=== PATIENT | male | born 1985 | race American Indian/Alaskan Native ===

== ENCOUNTER 2018-10-11 19:09 | Emergency (ER) | payer SELFPAY ==
--- NOTE | 2018-10-11 19:34 | Event Note ---
ED Screening Note Date of service: 10/11/18 Time: 19:33 ED Screening Note: 33 y o male presents with harris x 2 days no hx of headache This initial assessment/diagnostic orders/clinical plan/treatment(s) is/are subject to change based on patients health status, clinical progression and re-assessment by fellow clinical providers in the ED. Further treatment and workup at subsequent clinical providers discretion. Patient/guardian urged not to elope from the ED as their condition may be serious if not clinically assessed and managed. Initial orders include:
[2018-10-11] MEDS ORDERED: DECADRON ONE (23:39)
[2018-10-11] MEDS ORDERED: REGLAN ONE (23:40)
[2018-10-11] MEDS ORDERED: BENADRYL PO ONE (23:40)
[2018-10-11] MEDS ORDERED: ULTRAM ONE (23:40)
[2018-10-11] MEDS ORDERED: TYLENOL ONE (23:42)
[2018-10-11] MEDS ORDERED: DECADRON IV ONE (23:44)
[2018-10-11] MEDS ORDERED: TYLENOL PO ONE (23:44)
[2018-10-11] MEDS ORDERED: ULTRAM PO ONE (23:44)
[2018-10-11] MEDS ORDERED: REGLAN PO ONE (23:44)
--- NOTE | 2018-10-12 00:44 | Emergency Department Report ---
ED General Adult HPI - General Chief complaint: Headache Stated complaint: HEADACHE Time Seen by Provider: 10/11/18 19:33 Source: patient Mode of arrival: Ambulatory Limitations: No Limitations - History of Present Illness Initial comments: Patient is a 33-year-old Afro-[place] male with no past medical history who presents to the ED with complaint of acute onset persistent severe frontal sinus pressure and severe headache for the last 5 days. Patient states that the pain has been persistent but in the last 2 days he has not been able to sleep due to severe pain despite taking oral ibuprofen. Patient also complains of nausea. Patient denies vomiting, sore throat, fever, chills, vision changes, neck pain, chest pain, shortness of breath, dizziness, lightheadedness, syncope, vision loss or nasal and sinus congestion. MD Complaint: Sinus headache and pressure; nausea -: Sudden, days(s) (5) Location: head Radiation: non-radiation Severity scale (0 -10): 7 Quality: aching, sharp Improves with: none Worsens with: none Associated Symptoms: denies other symptoms, headaches, loss of appetite, nausea/vomiting. denies: confusion, chest pain, cough, diaphoresis, malaise, rash, seizure, shortness of breath, syncope, weakness, other Treatments Prior to Arrival: NSAID - Related Data Previous Rx's Medication Instructions Recorded Last Taken Type Ibuprofen [Motrin 800 MG tab] 800 mg PO Q8H #30 tablet 06/03/13 Unknown Rx Amoxicillin [Amoxicillin TAB] 875 mg PO BID #20 tablet 10/13/14 Unknown Rx HYDROcodone/APAP 5-325 [[place] 1 each PO Q6HR PRN #10 tablet 10/13/14 Unknown Rx 5-325 mg TAB] Ibuprofen [Motrin 800 MG tab] 800 mg PO Q8HR PRN #30 tablet 10/13/14 Unknown Rx Amoxicillin [Trimox CAP] 500 mg PO Q8H #30 capsule 10/12/18 Unknown Rx Butalb/Acetamin/Caff 50-325-40 1 - 2 tab PO Q6HR PRN #12 tab 10/12/18 Unknown Rx [Fioricet 50-325-40] Ketorolac [Toradol] 10 mg PO Q8H PRN #20 tablet 10/12/18 Unknown Rx Ondansetron [Zofran Odt] 4 mg PO Q6HR PRN #12 tab.rapdis 10/12/18 Unknown Rx Allergies Allergy/AdvReac Type Severity Reaction Status Date / Time No Known Allergies Allergy Verified 06/03/13 22:20 ED Review of Systems ROS: Stated complaint: HEADACHE Other details as noted in HPI Constitutional: denies: chills, fever Eyes: denies: eye pain, eye discharge, vision change ENT: denies: ear pain, throat pain Respiratory: denies: cough, shortness of breath, wheezing Cardiovascular: denies: chest pain, palpitations Endocrine: no symptoms reported Gastrointestinal: nausea. denies: abdominal pain, diarrhea Genitourinary: denies: urgency, dysuria Musculoskeletal: denies: back pain, joint swelling, arthralgia Skin: denies: rash, lesions Neurological: headache. denies: weakness, paresthesias Psychiatric: denies: anxiety, depression Hematological/Lymphatic: denies: easy bleeding, easy bruising ED Past Medical Hx - Past Medical History Additional medical history: toothache - Social History Smoking Status: Current Every Day Smoker Substance Use Type: None - Medications Home Medications: Home Medications Medication Instructions Recorded Confirmed Last Taken Type Ibuprofen [Motrin 800 MG tab] 800 mg PO Q8H #30 tablet 06/03/13 Unknown Rx Amoxicillin [Amoxicillin TAB] 875 mg PO BID #20 tablet 10/13/14 Unknown Rx HYDROcodone/APAP 5-325 [[place] 1 each PO Q6HR PRN #10 tablet 10/13/14 Unknown Rx 5-325 mg TAB] Ibuprofen [Motrin 800 MG tab] 800 mg PO Q8HR PRN #30 tablet 10/13/14 Unknown Rx Amoxicillin [Trimox CAP] 500 mg PO Q8H #30 capsule 10/12/18 Unknown Rx Butalb/Acetamin/Caff 50-325-40 1 - 2 tab PO Q6HR PRN #12 tab 10/12/18 Unknown Rx [Fioricet 50-325-40] Ketorolac [Toradol] 10 mg PO Q8H PRN #20 tablet 10/12/18 Unknown Rx Ondansetron [Zofran Odt] 4 mg PO Q6HR PRN #12 tab.rapdis 10/12/18 Unknown Rx ED Physical Exam - General Limitations: No Limitations General appearance: alert, in no apparent distress - Head Head exam: Present: atraumatic, normocephalic, normal inspection - Eye Eye exam: Present: normal appearance, PERRL, EOMI Pupils: Present: normal accommodation - ENT ENT exam: Present: normal exam, normal orophraynx, mucous membranes moist, TM's normal bilaterally, normal external ear exam, other (Palpable severe tenderness of frontal sinus) - Neck Neck exam: Present: normal inspection, full ROM. Absent: tenderness, meningismus, lymphadenopathy, thyromegaly - Respiratory Respiratory exam: Present: normal lung sounds bilaterally. Absent: respiratory distress, wheezes, rales, rhonchi, chest wall tenderness - Cardiovascular Cardiovascular Exam: Present: regular rate, normal rhythm, normal heart sounds. Absent: systolic murmur, diastolic murmur, rubs, gallop - GI/Abdominal GI/Abdominal exam: Present: soft, normal bowel sounds. Absent: tenderness, guarding, rebound, hyperactive bowel sounds, hypoactive bowel sounds, organomegaly, mass, bruit, pulsatile mass - Rectal Rectal exam: Present: deferred - Extremities Exam Extremities exam: Present: normal inspection, full ROM, normal capillary refill - Back Exam Back exam: Present: normal inspection, full ROM. Absent: tenderness, CVA tenderness (R), CVA tenderness (L), muscle spasm, paraspinal tenderness, vertebral tenderness - Neurological Exam Neurological exam: Present: alert, oriented X3, CN II-XII intact, normal gait, reflexes normal - Psychiatric Psychiatric exam: Present: normal affect, normal mood - Skin Skin exam: Present: warm, dry, intact, normal color. Absent: rash ED Course Vital Signs 10/11/18 19:32 Temperature 98.4 F Pulse Rate 91 H Respiratory 16 Rate Blood Pressure 119/64 O2 Sat by Pulse 96 Oximetry - Reevaluation(s) Reevaluation #1: 10/12/18 00:47 This is a 33-year-old male who presented to the ED with frontal sinus pressure and headache for 5 days. In the ED, patient is alert and oriented 3 and is in distress with normal vital signs. Patient was treated for pain and on reevaluation, patient's headache resolved with medications. This in the physical exam findings patient's headache is likely due to acute frontal sinusitis. Patient was discharged home on medications and advised to follow-up with his primary care physician in 5-7 days for reevaluation or return to the ED immediately if symptoms get worse. ED Medical Decision Making - Medical Decision Making This is a 33-year-old male who presented to the ED with frontal sinus pressure and headache for 5 days. In the ED, patient is alert and oriented 3 and is in distress with normal vital signs. Patient was treated for pain and on reevaluation, patient's headache resolved with medications. This in the physical exam findings patient's headache is likely due to acute frontal sinusitis. Patient was discharged home on medications and advised to follow-up with his primary care physician in 5-7 days for reevaluation or return to the ED immediately if symptoms get worse. - Differential Diagnosis Tension type headache; sinus headache, sinusitis, cluster headache Critical care attestation.: If time is entered above; I have spent that time in minutes in the direct care of this critically ill patient, excluding procedure time. ED Disposition Clinical Impression: Sinus headache, Nausea and vomiting in adult Acute frontal sinusitis Qualifiers: Recurrence: non-recurrent Qualified Code(s): J01.10 - Acute frontal sinusitis, unspecified Disposition: TO HOME OR SELFCARE Is pt being admited?: No Does the pt Need Aspirin: No Condition: Stable Instructions: Sinusitis (ED), Acute Headache (ED), Acute Nausea and Vomiting (ED) Additional Instructions: Take medication with food, drink plenty of fluids and follow-up with your primary care physician in 5-7 days for reevaluation. Return to the ED immediately if symptoms get worse. Prescriptions: Butalb/Acetamin/Caff 50-325-40 [Fioricet 50-325-40] 1 - 2 tab PO Q6HR PRN #12 tab PRN Reason: Headache Ketorolac [Toradol] 10 mg PO Q8H PRN #20 tablet PRN Reason: Pain Amoxicillin [Trimox CAP] 500 mg PO Q8H #30 capsule Ondansetron [Zofran Odt] 4 mg PO Q6HR PRN #12 tab.rapdis PRN Reason: Nausea Referrals: PRIMARY CARE,MD [Primary Care Provider] - 3-5 Days Forms: Work/School Release Form(ED) Time of Disposition: 00:41 Print Language: [id number]
[2018-10-12 01:00] VITALS: BP 118/65
[2018-10-12] MEDS ORDERED: BENADRYL PO ONE (01:22)
== END 2018-10-12 01:02 | disposition home or self-care (01) ==
LOC: ED 19:09
DX: J01.10 Acute frontal sinusitis, unspecified (principal); R11.2 Nausea with vomiting, unspecified; F17.200 Nicotine dependence, unspecified, uncomplicated
CPT/HCPCS: 96374; J1100